=== PATIENT | male | born 1990 | race Caucasian/White ===

== ENCOUNTER 2021-10-08 11:21 | Emergency (ER) | payer OTHER, SELFPAY ==
[2021-10-08 11:35] VITALS: BP 126/100; PULSE 112; RESP 20; TEMP 36.3; O2SAT 100
[2021-10-08 12:05] LABS: Basophils Absolute Auto 0.1 K/mm3 (0.0-0.1); Basophils Percent Auto 0.3 % (0.2-1.2); Eosinophils Absolute Auto 0.1 K/mm3 (0-0.3); Eosinophils Percent Auto 0.8 % (0-4.4); Hematocrit 50.6 % (42.0-52.0); Hemoglobin 17.4 g/dL (14.0-18.0); Immature Granulocyte Absolute 0.08 K/mm3 (0.00-0.031); Immature Granulocyte Percent A 0.4 % (0-0.5); Lymphocytes Absolute Auto 0.66 K/mm3 (0.9-3.2); Lymphocytes Percent Auto 3.6 % (18.3-44.2); Mean Corpuscular HGB Conc 34.4 g/dl (32-36); Mean Corpuscular Hemoglobin 31.2 pg (26-34); Mean Corpuscular Volume 90.8 fl (80-100); Mean Platelet Volume 9.8 fl (7.4-10.4); Monocytes Percent Auto 5.4 % (2.6-8.5); Neutrophils Absolute Auto 16.6 K/mm3 (1.3-6.7); Neutrophils Percent Auto 89.5 % (45.5-73.1); Platelet Count Result 223 k/mm3 (150-375); Red Blood Count 5.57 M/mm3 (4.6-6.20); Red Cell Distribution Width 11.9 % (11.5-14.5); White Blood Count 18.5 K/mm3 (4.5-10.0)
[2021-10-08 12:10] LABS: Add Urine Microscopic? YES; Appearance Urine Cloudy (Clear); Bilirubin Urine Negative (Negative); Blood Urine 1+ (Negative); Color Urine Amber (Yellow); Glucose Urine UA Negative (Negative); Ketones Urine Trace mg/dL (Negative); Leukocyte Esterase Ur Negative LEU/UL (Negative); Mucus Urine Heavy /lpf; Nitrate Urine Negative (Negative); Protein Urine 1+ mg/dL (Negative); RBC Urine 0-2 /hpf (0-2); Specific Grav Ur 1.029 (1.001-1.035); Squamous Epithelial Cell Urine Few /hpf (Few); Urobilinogen Urine Negative mg/dL (<2.0)
[2021-10-08 12:18] LABS: Alanine Aminotransferase 35 U/L (4-50); Albumin Level 5.1 g/dL (3.5-5.1); Alkaline Phosphatase 106 U/L (38-126); Anion Gap 7 mmol/L (8-16); Aspartate Amino Transferase 35 U/L (17-59); Blood Urea Nitrogen 20 mg/dL (9-20); Calcium 9.4 mg/dL (8.4-10.2); Carbon Dioxide 31 mmol/L (22-30); Chloride 101 mmol/L (98-107); Estimated CRCL calculation 120 ml/min; Estimated Glomerular Filt Rate > 60; Glucose 127 mg/dL (65-110); Lipase 48 U/L (23-300); Potassium 4.4 mmol/L (3.4-5.0); Sodium 139 mmol/L (137-145)
--- NOTE | 2021-10-08 13:36 | ED.NAVMDI ---
HPI - Nausea/Vomiting/Diarrhea General Chief complaint: Nausea/Vomiting/Diarrhea Stated complaint: redness L axilla Time Seen by Provider: 10/08/21 13:01 Source: patient History of Present Illness HPI Narrative: Patient presents with nausea vomiting diarrhea. Ports he had abdominal pain he needs to use the restroom. Started this morning has gotten worse so he came to the ER for evaluation he is had any known sick contacts he denies fevers. Patient also reports purulent drainage from his left armpit and some erythema to his left thigh. Reports he thinks he has an abscess in his left armpit which she has had before he openedup and its been draining pus his left thigh does not hurt he just noted increasing. Denies any blood or bile or melena. He reports he is attempted Pepto-Bismol without relief of his symptoms. Related Data Allergies Allergy/AdvReac Type Severity Reaction Status Date / Time No Known Allergies Allergy Verified 10/08/21 11:46 Review of Systems Review of Systems: CONSTITUTIONAL: Denies fever, chills, or sweats. EYES: Denies visual changes, redness, or discharge. ENT: Denies rhinorrhea, congestion, sore throat, or otalgia. CARDIOVASCULAR: Denies chest pain, palpitations, or edema. RESPIRATORY: Denies cough or dyspnea. GASTROINTESTINAL: Abdominal pain with nausea vomiting diarrhea GENITOURINARY: Denies dysuria or hematuria. SKIN: Denies rash or itching. MUSCULOSKELETAL: Denies back pain, joint pain, or myalgia. NEUROLOGIC: Denies headache, numbness, dizziness, or weakness. PSYCHIATRIC: Denies anxiety or depression. All systems reviewed & are unremarkable except as noted in HPI and below Exam Narrative: GENERAL: Well-appearing, well-nourished, and in no acute distress. HEAD: Normocephalic, atraumatic. EYES: PERRLA and EOMI. ENT: Nares clear, no rhinorrhea or epistaxis. Mucous membranes moist. NECK: Supple. No masses. No JVD CHEST: Clear to auscultation. No respiratory distress. No wheezes rales or rhonchi HEART: Regular rate and rhythm. No murmur heard. Normal peripheral pulses. ABDOMEN: Soft, nontender, nondistended, normal active bowel sounds. EXTREMITIES: Normal range of motion. 1 x 1 cm area of edema with tenderness palpation that is open with purulent drainage there is a larger 4 x 5 cm area of erythema that is nontender and nonwarm with some satellite lesions. There is warmth erythema to the medial aspect of the left thigh approximately 1 x 2 cm without focal fluctuance there is minimal tenderness to palpation is at the base of hair follicles SKIN: Warm, dry, no rash. NEURO: No focal deficits. Alert and oriented x3. PSYCH: Normal mood and affect. Course Vital Signs Vital signs: Vital Signs Temperature 36.3 C L 10/08/21 11:35 Pulse Rate 112 H 10/08/21 11:35 Respiratory Rate 20 10/08/21 11:35 Blood Pressure 126/100 H 10/08/21 11:35 Pulse Oximetry 100 10/08/21 11:35 Temperature 36.3 C L 10/08/21 11:35 Pulse Rate 113 H 10/08/21 13:47 Respiratory Rate 14 10/08/21 13:47 Blood Pressure 142/71 H 10/08/21 13:47 Pulse Oximetry 99 10/08/21 13:47 MDM - Nausea/Vomiting/Diarrhea MDM Narrative Medical decision making narrative: H&P as above, vss, pt looks clinically well, exam with likely already draining abscess and overlying fungal infection in the left armpit abdominal exam is nonacute leg exam likely developing cellulitis, labs with leukocytosis otherwise clinically unremarkable, additional labs/img considered. symptomatic relief available as needed, on reevaluation pt continues to looks clinically well. Suspect viral process causing nausea vomiting and diarrhea patient also likely has a draining abscess with cellulitis and overlying fungal infection, dns severe sepsis, severe dehydration, appendicitis, bowel obstruction. plan to tx/monitor as op w/ pcm f/u findings/plan discussed with pt, pt agree/comfortable with plan, return precautions given Lab Data Result diagrams:
[2021-10-08] MEDS: ONDANSETRON INJ 4 MG/2 ML VIAL IV PUSH (13:37)
[2021-10-08] MEDS: SODIUM CHLORIDE 0.9% IV 1,000 ML 999 ML IV CONT (13:38)
[2021-10-08 13:47] VITALS: BP 142/71; PULSE 113; RESP 14; O2SAT 99
== END 2021-10-08 14:35 | disposition home or self-care (01) ==
PROVIDERS: Emergency Provider Emergency Medicine
DX: R11.2 Nausea with vomiting, unspecified (principal); R19.7 Diarrhea, unspecified; L02.412 Cutaneous abscess of left axilla; L03.116 Cellulitis of left lower limb; B36.9 Superficial mycosis, unspecified
CPT/HCPCS: 36415; 80053; 81001; 83690; 85025; 96361; 96374; 99284; J2405; J7030